=== PATIENT | female | born 1995 | race Caucasian/White ===

== ENCOUNTER → 2020-11-04 | Outpatient (CLI) | payer OTHER ==
[~2020-11-04] MED LIST: AMOX50SU PO
== END | disposition home or self-care (01) ==
LOC: LAB 16:46 → LAB SHORT 16:46
PROVIDERS: Family Medicine
DX: Z01.419 Encounter for gynecological examination (general) (routine) without abnormal findings (principal)
CPT/HCPCS: G0123

== ENCOUNTER → 2024-03-21 | Outpatient (CLI) | payer OTHER ==
[2024-03-21 08:31] LABS: Hematocrit 41.8 % (33.0-51.0); Hemoglobin 14.6 g/dL (11.5-16.0); Mean Corpuscular HGB 32.1 pg (26.0-34.0); Mean Corpuscular HGB Conc 34.9 g/dL (31.5-36.5); Mean Corpuscular Volume 92 fL (80-100); Mean Platelet Volume 9.5 fL (9.1-12.4); Platelet Count 211 K/mm3 (150-400); RDW Coefficient Variation 11.7 % (11.7-14.2); RDW Standard Deviation 39.5 fL (35.1-46.3); Red Blood Cell Count 4.55 M/mm3 (3.80-5.20); White Blood Cell Count 4.96 K/mm3 (4.00-11.30)
[2024-03-21 08:51] LABS: Free Thyroxine 0.85 ng/dL (0.70-1.60); Percent Saturation 54.4 % (15.0-50.0)
[2024-03-21 09:09] LABS: Albumin, Blood 4.1 g/dL (3.4-5.0); Albumin/Globulin Ratio 1.3 (0.8-1.8); Bilirubin, Total 0.7 mg/dL (0.1-1.0); Bun/Creatinine Ratio 20.2 (12.0-20.0); Calcium, Blood 8.6 mg/dL (8.5-10.1); Creatinine, Blood 0.74 mg/dL (0.40-1.00); Globulin, Blood 3.2 g/dL (2.2-4.0); Potassium, Blood 4.1 mmol/L (3.5-5.5); Progesterone 11.2 ng/mL; Thyroid Stimulating Hormone 2.71 uIU/mL (0.360-4.800); Total Protein, Blood 7.3 g/dL (6.4-8.2); Triiodothyronine, Free 2.97 pg/mL (2.18-3.98)
[2024-03-23 01:54] LABS: HOMOCYSTEINE,TOTAL 5 umol/L (0-15)
== END | disposition home or self-care (01) ==
LOC: LAB 06:56 → LAB SHORT 06:56
PROVIDERS: Naturopath
DX: Z00.00 Encounter for general adult medical examination without abnormal findings (principal); N94.6 Dysmenorrhea, unspecified; Z13.1 Encounter for screening for diabetes mellitus; N94.3 Premenstrual tension syndrome; R79.89 Other specified abnormal findings of blood chemistry
CPT/HCPCS: 80053; 82306; 82533; 82607; 82728; 83090; 83540; 83550; 84144; 84439; 84443; 84481; 85027